=== PATIENT | female | born 1985 | race African-American/Black ===

== ENCOUNTER 2024-07-04 11:42 | Emergency (ER) | payer OTHER, SELFPAY ==
--- NOTE | ~2024-07-04 | US_ITS ---
EXAMINATION: US PELVIS TRANSABDOMINAL AND TRANSVAGINAL HISTORY: pelvic pain. ovarian torsion? COMPARISON: There are no prior studies for comparison. TECHNIQUE: Transabdominal and endovaginal real-time 2D steven-scale ultrasound was performed. Color and pulsed Doppler evaluation of the bilateral ovarian arteries and veins was performed. FINDINGS: Uterus: The uterus is normal in size, measuring 8.1 x 3.4 x 4.3 cm. Myometrium has a normal echotexture. There are 2 right sided fibroid measuring 6 x 6 x 6 mm and 7 x 7 x 8 mm. Endometrium: The endometrial stripe measures 3 mm in thickness. Right ovary: The right ovary measures 1.8 x 2.5 x 1.7 cm. The right ovary is normal in size and echotexture. Left ovary: The left ovary measures 2.2 x 1.9 x 1.8 cm. The left ovary is normal in size and echotexture. There is a cyst in the left adnexa adjacent to the ovary measuring 1.4 x 1.2 x 1.2 cm. Normal color and pulsed Doppler waveforms are noted in the bilateral ovarian arteries and veins. Pelvic fluid: none. US/US pelvic and transvaginal IMPRESSION: 1. Normal color and pulse Doppler vascular flow is noted in the bilateral ovarian arteries and veins. 2. Uterine fibroids as described. 3. 1.4 x 1.2 x 1.2 cm left adnexal cyst, which may represent a paraovarian cyst. Electronically signed by: Adam Zafar MD 07/04/2024 03:26 PM EDT
--- NOTE | ~2024-07-04 | US_ITS ---
EXAMINATION: US PELVIS TRANSABDOMINAL AND TRANSVAGINAL HISTORY: pelvic pain. ovarian torsion? COMPARISON: There are no prior studies for comparison. TECHNIQUE: Transabdominal and endovaginal real-time 2D steven-scale ultrasound was performed. Color and pulsed Doppler evaluation of the bilateral ovarian arteries and veins was performed. FINDINGS: Uterus: The uterus is normal in size, measuring 8.1 x 3.4 x 4.3 cm. Myometrium has a normal echotexture. There are 2 right sided fibroid measuring 6 x 6 x 6 mm and 7 x 7 x 8 mm. Endometrium: The endometrial stripe measures 3 mm in thickness. Right ovary: The right ovary measures 1.8 x 2.5 x 1.7 cm. The right ovary is normal in size and echotexture. Left ovary: The left ovary measures 2.2 x 1.9 x 1.8 cm. The left ovary is normal in size and echotexture. There is a cyst in the left adnexa adjacent to the ovary measuring 1.4 x 1.2 x 1.2 cm. Normal color and pulsed Doppler waveforms are noted in the bilateral ovarian arteries and veins. Pelvic fluid: none. US/US pelvic ovarian doppler IMPRESSION: 1. Normal color and pulse Doppler vascular flow is noted in the bilateral ovarian arteries and veins. 2. Uterine fibroids as described. 3. 1.4 x 1.2 x 1.2 cm left adnexal cyst, which may represent a paraovarian cyst. Electronically signed by: Adam Zafar MD 07/04/2024 03:26 PM EDT
[2024-07-04 12:01] VITALS: BP 113/57; PULSE 79; RESP 20; TEMP 37; O2SAT 100; BMI 33.4
--- NOTE | 2024-07-04 12:04 | ED.GENADULT ---
HPI - General Adult General Chief complaint: General Medical Stated complaint: Ovarian cyst? Time Seen by Provider: 07/04/24 14:07 History of Present Illness ED Provider: Samuel Espinoza MD HPI narrative: 38-year-old female heavy pain and pressure left lower quadrant. History of ovarian cysts. No hematuria. Patient reports a left lower quadrant pain and suprapubic pain without dysuria. Just finished her menses. She is not . No flank pain no history of kidney stones currently no urinary symptoms Surgical history 2019 no complications described Related Data Previous Rx's ?Medication ?Instructions ?Recorded amoxicillin 875 mg-potassium 1 tab PO BID 7 days #14 tabs 07/04/24 clavulanate 125 mg tablet Allergies Allergy/AdvReac Type Severity Reaction Status Date / Time No Known Allergies Allergy Verified 07/04/24 12:01 [facility] Social History Social History Advance Directives: No Advance Directives Information Provided: No Physical Exam ED Vital Signs: Vital Signs - 24 hr 07/04/24 12:01 07/04/24 14:51 07/04/24 16:08 Temperature 98.6 F 98.2 F 97.7 F Pulse Rate 79 85 74 Respiratory Rate 20 18 18 Blood Pressure 113/57 L 110/48 L 111/50 L Pulse Oximetry 100 100 100 Oxygen Delivery Method Room Air Room Air Room Air BMI result Body Mass Index 33.4 Const Other: EXAM: Gen: Alert, awake, well appearing, well hydrated. Head: Atraumatic Eyes: Anicteric, Normal conjunctiva. ENT: Moist mucosa, no pallor. ? Neck: Supple. Respiratory: Breathing comfortably, No distress.Clear to auscultation bilaterally, symmetric chest expansion, No wheeze, rales, ronchi. Cardiovascular: Regular rate and rhythm. No murmurs or rub. Well perfused periphery, warm extremities. No edema. ? Abdominal: Soft, no objective distension. No palpable masses or obvious organomegaly. Moderate left lower quadrant and suprapubic tenderness, no guarding, no rebound tenderness or other peritoneal findings. : No flank tenderness. Neuro: Alert. Gross movement of all extremities intact. ? Vital signs: See flowsheet Course Course Course Narrative: RME: 38-year-old female presents to ED for left pelvic ovarian cyst. Patient states history of ovarian cyst and feels pressure and fullness over his turning and left lower quadrant. Patient denies any vaginal bleeding or vaginal discharge. Patient denies any diarrhea or blood in stool. Positive for left suprapubic pelvic tenderness on palpation. Labs UA ordered Medications Administered Discontinued Medications Generic Name Dose Route Start Last Admin Trade Name Cathi PRN Reason Stop Dose Admin Acetaminophen 975 mg 07/04/24 14:57 07/04/24 16:38 Acetaminophen 325 Mg Tablet PO 07/04/24 14:58 975 mg ONCE ONE Administration Ketorolac Tromethamine 15 mg 07/04/24 14:57 07/04/24 16:37 Ketorolac Tromethamine 15 Mg/Ml Vial IVPUSH 07/04/24 14:58 15 mg ONCE ONE Administration Medical Decision Making Medical Decision Making MDM Narrative: Hx of ovarian cysts. No prior PID. Non . Tender suprapubic and left lower quadrant. Afebrile vital signs stable. Differential considered ovarian torsion, ovarian cyst, ovarian cyst rupture, TOA, UTI, diverticulitis After ultrasound imaging it is possible that the paraovarian cyst is causing her pain though there is no evidence of torsion and it is quite small. At this time given her well appearance lack of fever or hemodynamic instability no guarding I think it is reasonable to avoid CT shared decision-making discussion about this and we felt it was reasonable to provide wait and see antibiotics for possible early diverticulitis have her see her marine engine driver as soon as possible she is agreeable to this IMPRESSION: 1. Normal color and pulse Doppler vascular flow is noted in the bilateral ovarian arteries and veins. 2. Uterine fibroids as described. 3. 1.4 x 1.2 x 1.2 cm left adnexal cyst, which may represent a paraovarian cyst. Lab Data 07/04/24 12:40 07/04/24 12:40 Labs: Lab Results 07/04/24 07/04/24 Range/Units 12:40 15:57 WBC 6.1 (4.8-10.8) X10*3/uL RBC 4.03 L (4.20-5.50) X10*6/uL Hgb 11.8 L (12.0-16.0) g/dl Hct 36.0 L (37.0-47.0) % MCV 89.3 (80.0-98.0) fL MCH 29.3 (27.0-33.0) pg MCHC 32.8 (31.0-35.0) g/dl RDW 13.5 (11.0-16.0) % Plt Count 307 (160-400) X10*3/uL MPV 9.7 (9.4-12.3) fL Immature Gran % (Auto) 0.2 (0.0-0.4) % Neut % (Auto) 65.5 (45-73) % Lymph % (Auto) 26.8 (20-40) % [place] % (Auto) 5.3 (2-11) % Eos % (Auto) 1.5 (0-4) % Baso % (Auto) 0.7 (0-2) % Lymph # (Auto) 1.6 (1.2-4.9) X10*3/uL [place] # (Auto) 0.3 (0.1-1.2) X10*3/uL Eos # (Auto) 0.1 (0.0-0.4) X10*3/uL Baso # (Auto) 0.0 (0.0-0.2) X10*3/uL Abs Immat Gran (auto) 0.01 (0.00-0.03) X10*3/uL Absolute Neuts (auto) 4.0 (2.0-8.3) x10*3/uL Absolute Nucleated RBC 0.000 (0.0-0.012) X10*3/uL Nucleated RBC % (auto) 0.0 (0.0-0.2) /100WBC Sodium 140 (135-145) mmol/L Potassium 4.0 (3.3-5.1) mmol/L Chloride 106 (96-108) mmol/L Carbon Dioxide 27 (22-29) mmol/L Anion Gap 11 L (12-20) BUN 5 L (9-16) mg/dL Creatinine 0.80 (0.5-1.4) mg/dL Estim Creat Clear Calc 97.0 Estimated GFR > 60 Random Glucose 85 (60-115) mg/dL Calcium 9.2 (8.4-10.2) mg/dL Total Bilirubin 0.3 (0.0-1.0) mg/dL AST 16 (5-31) U/L ALT 9 (0-31) U/L Alkaline Phosphatase 83 (39-117) U/L Total Protein 7.5 (6.5-8.0) g/dL Albumin 4.3 (3.5-5.0) g/dL Beta HCG, Quant < 2 mIU/mL Urine Color Yellow Urine Appearance Clear Urine pH 7.5 (5.0-9.0) Ur Specific [place] <= 1.005 (1.005-1.025) Urine Protein Negative (Neg-Trace) mg/dL Urine Glucose (UA) Negative (Negative) mg/dL Urine Ketones Negative (Negative) mg/dL Urine Blood Negative (Negative) Urine Nitrite Negative (Negative) Ur Leukocyte Esterase Negative (Negative) Urine Test NEGATIVE (NEGATIVE) Discharge Plan Discharge Clinical Impression: Para-ovarian cyst, Abdominal pain Patient Disposition: Home, Self-Care Instructions: Ovarian Cyst (ED), Abdominal Pain (ED) Additional Instructions: DISCHARGE DIAGNOSES: Paraovarian cyst small on the left side Abdominal pain unclear cause HISTORY OF PRESENTATION: Abdominal pain EMERGENCY DEPARTMENT COURSE,TESTS, TREATMENTS: While in the ED today you had an ultrasound which showed the findings copied below which may or may not be related to abdominal pain we tested your blood work which was reassuring. Your test was negative in your urinalysis did not suggest urinary tract infection DISCHARGE MEDICATIONS: ?[We have made no changes to your regular medication regimen] if prescribed antibiotic which as we discussed should not be taken at less your pain worsens in the left lower side of the abdomen or you develop diarrhea over the next few days FOLLOW-UP: ?Call your primary or general physician soon as possible to discuss your symptoms, your ED visit and to discuss follow up plans [Call your primary doctor for follow up INSTRUCTIONS ?& RETURN PRECAUTIONS: If any symptoms change first call your primary physician, if it is after-hours your primary doctors office should have a provider bpm solution architect you can speak with. If the symptoms are severe or very concerning to you then call 911 or return to the ED. If you develop severe intractable pain high fevers severe diarrhea or bloody diarrhea return back to the emergency depart. Also call your marine engine driver for follow up IMPRESSION: 1. Normal color and pulse Doppler vascular flow is noted in the bilateral ovarian arteries and veins. 2. Uterine fibroids as described. 3. 1.4 x 1.2 x 1.2 cm left adnexal cyst, which may represent a paraovarian cyst. Samuel Espinoza MD Emergency Physician [facility] Prescriptions: New amoxicillin-pot clavulanate 875-125 mg tablet 1 tab PO BID 7 Days Qty: 14 0RF Interventions: ED Discharge Assessment Last Done: 07/04/24 16:57 Discharge Date/Time: 07/04/24 16:57 Print Language: [place]
[2024-07-04 12:46] LABS: MANUAL DIFF FLAG NO
[2024-07-04 12:49] LABS: Basophils Percent Auto 0.7 % (0-2); Eosinophils Absolute Auto 0.1 X10*3/uL (0.0-0.4); Eosinophils Percent Auto 1.5 % (0-4); Hemoglobin 11.8 g/dl (12.0-16.0); Imm Gran Abs Auto 0.01 X10*3/uL (0.00-0.03); Imm Gran Pct Auto 0.2 % (0.0-0.4); Lymphocytes Absolute Auto 1.6 X10*3/uL (1.2-4.9); Lymphocytes Percent Auto 26.8 % (20-40); Mean Corpuscular HGB Conc 32.8 g/dl (31.0-35.0); Mean Corpuscular Hemoglobin 29.3 pg (27.0-33.0); Mean Corpuscular Volume 89.3 fL (80.0-98.0); Mean Platelet Volume 9.7 fL (9.4-12.3); Monocytes Absolute Auto 0.3 X10*3/uL (0.1-1.2); Monocytes Percent Auto 5.3 % (2-11); Neutrophils Percent Auto 65.5 % (45-73); Platelet Count 307 X10*3/uL (160-400); Red Blood Count 4.03 X10*6/uL (4.20-5.50); Red Cell Distribution Width 13.5 % (11.0-16.0); White Blood Count 6.1 X10*3/uL (4.8-10.8)
[2024-07-04 13:14] LABS: Alanine Aminotransferase 9 U/L (0-31); Albumin Level 4.3 g/dL (3.5-5.0); Anion Gap 11 (12-20); Aspartate Amino Transferase 16 U/L (5-31); Bilirubin Total 0.3 mg/dL (0.0-1.0); Blood Urea Nitrogen 5 mg/dL (9-16); Calcium 9.2 mg/dL (8.4-10.2); Carbon Dioxide 27 mmol/L (22-29); Chloride 106 mmol/L (96-108); Estimated Glomerular Filt Rate > 60; Glucose Random 85 mg/dL (60-115); Sodium 140 mmol/L (135-145); Total Protein 7.5 g/dL (6.5-8.0)
[2024-07-04 13:24] LABS: HCG Quantitative < 2 mIU/mL
[2024-07-04 14:51] VITALS: BP 110/48; PULSE 85; RESP 18; TEMP 36.8; O2SAT 100
--- OUTSIDE RECORDS SUMMARY | 2024-07-04 15:40 | XMS_ITS ---
Author Organization [facility] Address [address] [place] [address] Care Team Providers Care Entry Level Assistant Manager Name Role Phone JORGE ALBERTO PRIDE Unavailable [phone] MEDICATIONS Medication SIG (Take, Route, Frequency, Duration) Notes Start Date End Date Status Vitamin K2-Vitamin D3 Active buPROPion HCl 100 MG 1 tablet Orally Twice a day Active Tirzepatide 2.5 MG/0.5ML as directed Subcutaneous Active Zepbound 2.5 MG/0.5ML 0.5 mL Subcutaneou s weekly for 30 days 12/15/2023 Active Encounters Encounter Location Date Provider Diagnosis [facility] [address] [place] [address] 03/28/2024 JORGE ALBERTO PRIDE PLAN OF TREATMENT Next Appt Details Provider Name:JORGE ALBERTO PRIDE, 08/11/2024 09:45:00 AM, [address], [place], [address], Progress Notes * Ratna GALINDOB:[birth year] (38 yo F)Acc No.[id number]:03/28/2024 Patient:??Jose GALINDO Provider:??JORGE ALBERTO NGUYEN PA-C :1985?Age:38 Y?Sex:Fe male Date:03/28/2024 [id number] Subjective: * Chief Complaints: * ? * Medical History:?? * Medications:??Taking Tirzepa tide 2.5 MG/0.5ML Solution Auto-injector as directed Subcutaneous , Taking Vitamin K2-Vitamin D3 , Taking buPROPion HCl 100 MG Tablet 1 tablet Orally Twice a day , Taking Zepbound 2.5 MG/0.5ML Solution Auto-injector 0.5 mL Subcutaneous weekly Objective: Assessment: Plan: * Treatment: * Images: Billing Information: * Visit Code:?? * Procedure Codes:?? * Sign off status: Pending * Provider:??JORGE ALBERTO NGUYEN PA-C Date:??03/02
--- OUTSIDE RECORDS SUMMARY | 2024-07-04 15:40 | XMS_ITS ---
Author Organization [facility] Address [address] [place] [id number] Care Team Providers Care Digital Imaging Specialist Name Role Phone JORGE ALBERTO PRIDE Unavailable [phone] ALLERGIES No Known Allergies REASON FOR VISIT Patient presents for weight management follow up. Previous weight was 196lbs, current weight is standing at 191lbs. The patient is interested in increasing the Zepbound 2.5mg to 5mg. No additional questions or concerns needed to be addressed MEDICATIONS Medication SIG (Take, Route, Frequency, Duration) Notes Start Date End Date Status buPROPion HCl ER (SR) 100 MG 1 tablet in the morning Orally Once a day for 90 days Active lamoTRIgine 25 MG Oral for 30 Days Active Vitamin K2-Vitamin D3 Active Zepbound 5 MG/0.5ML 5 mg Subcutaneous we ekly for 30 days 12/15/2023 Active SOCIAL HISTORY Tobacco Use: Social History Observation Description Date Details (start date - stop date) Never Smoker NA - NA Sex Assigned At : Social History Observation Description Sex Assigned At Unknown Tobacco Use/Smoking Question Answer Notes Are you a nonsmoker Section Notes: alcohol: wine 1x/week tob: denies marijuana: once every few months PROBLEMS Problem Type ICD Code Onset Dates Problem Status W/U Status Risk SNOMED Code Notes Problem Migraine headache (G43.909) Active confirmed Migraine variant with headache (disorder) (659381351) Problem BMI 36.0-36.9,adul t (Z68.36) Active confirmed [id number] VITAL SIGNS Blood pressure systolic 118 mm Hg 05/05/19 25 Blood pressure diastolic 82 mm Hg 025 Heart Rate 101 /min 05/04/2024 Height 61 in 05/04/2024 Weight 191.5 lbs 05/04/2024 BMI 36.18 kg/m2 05/04/2024 Oximetry 99 % 05/04/2024 Encounters Encounter Location Date Provider Diagnosis [facility] [address] [place] [address] 05/04/2024 JORGE ALBERTO PRIDE Obesity (BMI 30-39.9) E66.9 ; BMI 36.0-36.9,adult Z68.36 and Anxiety F41.9 ASSESSMENTS Encounter Date Diagnosis Assessment Notes Treatment Notes Treatment Clinical Notes Section Notes 05/04/2024 Obesity (BMI 30-39.9) (ICD-10 - E66.9) Shandra Is a 38-year-old female who presents officer weight management f/u. Weight loss plan will be managed as stated below. 03/18/22: weight 203, BMI 38.43- educated on diet/exercise, obtain labs 04/23/22: weight 208, BMI 39.3- educated extensively on lifestyle modifications, diet, exercise. Labs reviewed, which were overall without concern. Patient is interested in weight loss medication, will consider phentermine as she does qualify. EKG obtained today and was within normal limits. No concern for at this time. Patient educated excessively on side effects of phentermine. Will start phentermine 15 mg, and reassess and Four weeks, sooner as needed. Patient is a goal weight of around 175 pounds. 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 Patient was educated excessively on diet/exercise and provided handouts for a check sheet to focus on lifestyle modifications as well as high-protein, low carbohydrate, healthy fats. Patient will walk approximately 2 to 3 miles 4 to 5 times per week on her treadmill, and she will incorporate body weight strength training. Patient does have well above average muscle mass on her body, and we would like to maintain that. Patient will increase her water intake. She may consider intermittent fasting in the future. 05/28/22: weight 202.7, BMI 38.3- patient congratulated on efforts. She continues to lose weight with success. Taking phentermine 15 mg with compliance, without any side effects. Encouraged to continue with lifestyle modifications including walking regularly as well as portion control. MICC provided. Will increase phentermine to 30 mg. Patient will take 2, 15 mg tablets daily. Will follow up in one month, sooner as needed. 07/10/22: weight 198, BMI 37.4. Patient was increased to 30 mg phentermine qd last visit and has had associated side effects since increase including, sleep disturbances, constipation, lightheadedness, and lack of energy. These symptoms have led to her falling behind on previously discussed lifestyle changes from 05/28/22. She stated her most concerning symptoms are lack of sleep and increase in stress. She appears in NAD, and physical exam was unremarkable. She was instructed to D/C the dose of 30 mg phentermine and decrease back down to 15 mg phentermine qd. Lifestyle changes from previous visit were discussed, and goal for next visit is to be at those goals. Patient was educated on return precautions if she had palpitations or chest pains, or if her symptoms worsen. If Patient expensing plateau, consider Wegovy as patient will have three consecutive months of weight loss by next visit. 05/18/2023: Weight 209.2, BMI 39.52. Patient welcomed back to the practice. Has not been seen since July 2022. Is ready to get back on track. Was taking phentermine with compliance, no side effects but stopped following up with practice because she was not mentally ready. States that she now feels very motivated, anxiety under control with Celexa, and is ready to get back on the medication in conjunction with lifestyle. Discussed extensively lifestyle modification including high-protein foods, low carbohydrate snacks, healthy fats, sleep hygiene, stress reduction. Discussed medication options. Is aware of health insurance coverage/national shortages of medications. Will start semaglutide 0.25 mg with a goal to taper up to a dose is available with [facility]. Patient in the meantime will call [facility] to see if they cover Wegovy. Educated on proper use, side effects. 06/23/2023: Weight 206.4, BMI 38.99. Patient congratulated on effort, losing slow, steady weight. Body composition reviewed, patient did gain some fat, decreased the muscle. Educated on the importance of body composition, resistance training. Increase to semaglutide 0.5, has been having some nausea, but tolerable with lifestyle. Implementing more walking now that the weather is nicer. Interested in a submitting for Wegovy 1 mg. She is aware prior authorization process, national shortage. 12/15/2023: Weight 203, BMI 38.41. Patient reestablishing, last seen in May for which she was taking Wegovy 1 mg but she stopped taking medication because of severe acid reflux, and abdominal pain. She is interested in switching over to Zepbound. Did discuss proper use, side effects and long-term risks. She is hoping that she has less side effects on this medication. Will start with tirzepatide 2.5 mg in office in the meantime compounded.Follow-up in 4 to 6 weeks. 01/19/2024: Weight 196, BMI 37.07. Patient congratulated on effort, continuing to lose slow, steady weight. Continue tirzepatide 2.5 mg, doing more consistent Pilates and walking. Trying to submit Zepbound through [employer], [place] this patient has tried semaglutide, did not tolerate well. 05/04/2024: Weight 191, BMI 36. Patient congratulated on effort. Losing fat mass, 9 pounds since November, and increased to half a pound of muscle. She is very pleased with her progress overall. Increase Zepbound to 5 mg, follow-up in 6 weeks. Patient is feeling much better on Zepbound than she did Wegovy. # Onychomycosis: On terbinafine, controlled # Anxiety: Taking Wellbutrin 100 mg and Lamictal 25 mg, feeling well.Some challenges over the winter with anxiety/depression control but is starting to feel better. Following with psychiatry. Time spent with patient 30 minutes or greater than 50% of patient occasion and care coronation Follow-up in 4-6 weeks, sooner as needed. All quetsions answered to patients satisfaction. Patient verbalized understanding of diagnosis and treatments explained. To call sooner prior to next visit it any questions/concerns arise. Case discussed with collaborating physician Aliza Garrett who reviewed the assessment and plan. Chart, medications, labs, vital signs reviewed. Dictation was accomplished with the use of [employer] voice recognition software, prone to medical misidentifications and grammatical errors. This is unintentional and the practitioner does try to identify and correct these, but some could still be present. Please do not hesitate to contact practitioner for clarification. 05/04/2024 BMI 36.0-36.9,margarette lt (ICD-10 - Z68.36) Shandra Is a 38-year-old female who presents officer weight management f/u. Weight loss plan will be managed as stated below. 03/18/22: weight 203, BMI 38.43- educated on diet/exercise, obtain labs 04/23/22: weight 208, BMI 39.3- educated extensively on lifestyle modifications, diet, exercise. Labs reviewed, which were overall without concern. Patient is interested in weight loss medication, will consider phentermine as she does qualify. EKG obtained today and was within normal limits. No concern for at this time. Patient educated excessively on side effects of phentermine. Will start phentermine 15 mg, and reassess and Four weeks, sooner as needed. Patient is a goal weight of around 175 pounds. 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 Patient was educated excessively on diet/exercise and provided handouts for a check sheet to focus on lifestyle modifications as well as high-protein, low carbohydrate, healthy fats. Patient will walk approximately 2 to 3 miles 4 to 5 times per week on her treadmill, and she will incorporate body weight strength training. Patient does have well above average muscle mass on her body, and we would like to maintain that. Patient will increase her water intake. She may consider intermittent fasting in the future. 05/28/22: weight 202.7, BMI 38.3- patient congratulated on efforts. She continues to lose weight with success. Taking phentermine 15 mg with compliance, without any side effects. Encouraged to continue with lifestyle modifications including walking regularly as well as portion control. MICC provided. Will increase phentermine to 30 mg. Patient will take 2, 15 mg tablets daily. Will follow up in one month, sooner as needed. 07/10/22: weight 198, BMI 37.4. Patient was increased to 30 mg phentermine qd last visit and has had associated side effects since increase including, sleep disturbances, constipation, lightheadedness, and lack of energy. These symptoms have led to her falling behind on previously discussed lifestyle changes from 05/28/22. She stated her most concerning symptoms are lack of sleep and increase in stress. She appears in NAD, and physical exam was unremarkable. She was instructed to D/C the dose of 30 mg phentermine and decrease back down to 15 mg phentermine qd. Lifestyle changes from previous visit were discussed, and goal for next visit is to be at those goals. Patient was educated on return precautions if she had palpitations or chest pains, or if her symptoms worsen. If Patient expensing plateau, consider Wegovy as patient will have three consecutive months of weight loss by next visit. 05/18/2023: Weight 209.2, BMI 39.52. Patient welcomed back to the practice. Has not been seen since July 2022. Is ready to get back on track. Was taking phentermine with compliance, no side effects but stopped following up with practice because she was not mentally ready. States that she now feels very motivated, anxiety under control with Celexa, and is ready to get back on the medication in conjunction with lifestyle. Discussed extensively lifestyle modification including high-protein foods, low carbohydrate snacks, healthy fats, sleep hygiene, stress reduction. Discussed medication options. Is aware of health insurance coverage/national shortages of medications. Will start semaglutide 0.25 mg with a goal to taper up to a dose is available with [facility]. Patient in the meantime will call [facility] to see if they cover Wegovy. Educated on proper use, side effects. 06/23/2023: Weight 206.4, BMI 38.99. Patient congratulated on effort, losing slow, steady weight. Body composition reviewed, patient did gain some fat, decreased the muscle. Educated on the importance of body composition, resistance training. Increase to semaglutide 0.5, has been having some nausea, but tolerable with lifestyle. Implementing more walking now that the weather is nicer. Interested in a submitting for Wegovy 1 mg. She is aware prior authorization process, national shortage. 12/15/2023: Weight 203, BMI 38.41. Patient reestablishing, last seen in May for which she was taking Wegovy 1 mg but she stopped taking medication because of severe acid reflux, and abdominal pain. She is interested in switching over to Zepbound. Did discuss proper use, side effects and long-term risks. She is hoping that she has less side effects on this medication. Will start with tirzepatide 2.5 mg in office in the meantime compounded.Follow-up in 4 to 6 weeks. 01/19/2024: Weight 196, BMI 37.07. Patient congratulated on effort, continuing to lose slow, steady weight. Continue tirzepatide 2.5 mg, doing more consistent Pilates and walking. Trying to submit Zepbound through [facility], [place] this patient has tried semaglutide, did not tolerate well. 05/04/2024: Weight 191, BMI 36. Patient congratulated on effort. Losing fat mass, 9 pounds since November, and increased to half a pound of muscle. She is very pleased with her progress overall. Increase Zepbound to 5 mg, follow-up in 6 weeks. Patient is feeling much better on Zepbound than she did Wegovy. # Onychomycosis: On terbinafine, controlled # Anxiety: Taking Wellbutrin 100 mg and Lamictal 25 mg, feeling well.Some challenges over the winter with anxiety/depression control but is starting to feel better. Following with psychiatry. Time spent with patient 30 minutes or greater than 50% of patient occasion and care coronation Follow-up in 4-6 weeks, sooner as needed. All quetsions answered to patients satisfaction. Patient verbalized understanding of diagnosis and treatments explained. To call sooner prior to next visit it any questions/concerns arise. Case discussed with collaborating physician Aliza Garrett who reviewed the assessment and plan. Chart, medications, labs, vital signs reviewed. Dictation was accomplished with the use of [employer] voice recognition software, prone to medical misidentifications and grammatical errors. This is unintentional and the practitioner does try to identify and correct these, but some could still be present. Please do not hesitate to contact practitioner for clarification. 05/04/2024 Anxiety (ICD-10 - F41.9) Shandra Is a 38-year-old female who presents officer weight management f/u. Weight loss plan will be managed as stated below. 03/18/22: weight 203, BMI 38.43- educated on diet/exercise, obtain labs 04/23/22: weight 208, BMI 39.3- educated extensively on lifestyle modifications, diet, exercise. Labs reviewed, which were overall without concern. Patient is interested in weight loss medication, will consider phentermine as she does qualify. EKG obtained today and was within normal limits. No concern for at this time. Patient educated excessively on side effects of phentermine. Will start phentermine 15 mg, and reassess and Four weeks, sooner as needed. Patient is a goal weight of around 175 pounds. 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 Patient was educated excessively on diet/exercise and provided handouts for a check sheet to focus on lifestyle modifications as well as high-protein, low carbohydrate, healthy fats. Patient will walk approximately 2 to 3 miles 4 to 5 times per week on her treadmill, and she will incorporate body weight strength training. Patient does have well above average muscle mass on her body, and we would like to maintain that. Patient will increase her water intake. She may consider intermittent fasting in the future. 05/28/22: weight 202.7, BMI 38.3- patient congratulated on efforts. She continues to lose weight with success. Taking phentermine 15 mg with compliance, without any side effects. Encouraged to continue with lifestyle modifications including walking regularly as well as portion control. MICC provided. Will increase phentermine to 30 mg. Patient will take 2, 15 mg tablets daily. Will follow up in one month, sooner as needed. 07/10/22: weight 198, BMI 37.4. Patient was increased to 30 mg phentermine qd last visit and has had associated side effects since increase including, sleep disturbances, constipation, lightheadedness, and lack of energy. These symptoms have led to her falling behind on previously discussed lifestyle changes from 05/28/22. She stated her most concerning symptoms are lack of sleep and increase in stress. She appears in NAD, and physical exam was unremarkable. She was instructed to D/C the dose of 30 mg phentermine and decrease back down to 15 mg phentermine qd. Lifestyle changes from previous visit were discussed, and goal for next visit is to be at those goals. Patient was educated on return precautions if she had palpitations or chest pains, or if her symptoms worsen. If Patient expensing plateau, consider Wegovy as patient will have three consecutive months of weight loss by next visit. 05/18/2023: Weight 209.2, BMI 39.52. Patient welcomed back to the practice. Has not been seen since July 2022. Is ready to get back on track. Was taking phentermine with compliance, no side effects but stopped following up with practice because she was not mentally ready. States that she now feels very motivated, anxiety under control with Celexa, and is ready to get back on the medication in conjunction with lifestyle. Discussed extensively lifestyle modification including high-protein foods, low carbohydrate snacks, healthy fats, sleep hygiene, stress reduction. Discussed medication options. Is aware of health insurance coverage/national shortages of medications. Will start semaglutide 0.25 mg with a goal to taper up to a dose is available with [facility]. Patient in the meantime will call [facility] to see if they cover Wegovy. Educated on proper use, side effects. 06/23/2023: Weight 206.4, BMI 38.99. Patient congratulated on effort, losing slow, steady weight. Body composition reviewed, patient did gain some fat, decreased the muscle. Educated on the importance of body composition, resistance training. Increase to semaglutide 0.5, has been having some nausea, but tolerable with lifestyle. Implementing more walking now that the weather is nicer. Interested in a submitting for Wegovy 1 mg. She is aware prior authorization process, national shortage. 12/15/2023: Weight 203, BMI 38.41. Patient reestablishing, last seen in May for which she was taking Wegovy 1 mg but she stopped taking medication because of severe acid reflux, and abdominal pain. She is interested in switching over to Zepbound. Did discuss proper use, side effects and long-term risks. She is hoping that she has less side effects on this medication. Will start with tirzepatide 2.5 mg in office in the meantime compounded.Follow-up in 4 to 6 weeks. 01/19/2024: Weight 196, BMI 37.07. Patient congratulated on effort, continuing to lose slow, steady weight. Continue tirzepatide 2.5 mg, doing more consistent Pilates and walking. Trying to submit Zepbound through [facility], [place] this patient has tried semaglutide, did not tolerate well. 05/04/2024: Weight 191, BMI 36. Patient congratulated on effort. Losing fat mass, 9 pounds since November, and increased to half a pound of muscle. She is very pleased with her progress overall. Increase Zepbound to 5 mg, follow-up in 6 weeks. Patient is feeling much better on Zepbound than she did Wegovy. # Onychomycosis: On terbinafine, controlled # Anxiety: Taking Wellbutrin 100 mg and Lamictal 25 mg, feeling well.Some challenges over the winter with anxiety/depression control but is starting to feel better. Following with psychiatry. Time spent with patient 30 minutes or greater than 50% of patient occasion and care coronation Follow-up in 4-6 weeks, sooner as needed. All quetsions answered to patients satisfaction. Patient verbalized understanding of diagnosis and treatments explained. To call sooner prior to next visit it any questions/concerns arise. Case discussed with collaborating physician Aliza Garrett who reviewed the assessment and plan. Chart, medications, labs, vital signs reviewed. Dictation was accomplished with the use of [employer] voice recognition software, prone to medical misidentifications and grammatical errors. This is unintentional and the practitioner does try to identify and correct these, but some could still be present. Please do not hesitate to contact practitioner for clarification. PLAN OF TREATMENT Medication Medication Name Sig Start Date Stop Date Notes Zepbound 5 MG/0.5ML 5 mg Subcutaneous weekly for 30 days 1 Next Appt Details Provider Name:JORGE ALBERTO PRIDE, 08/11/2024 09:45:00 AM, [address] [facility], [place], [phone], Progress Notes * Jose GALINDOaDOB:[birth year] (38 yo F)Acc No.[id number]:05/04/2024 Patient:??Jose GALINDO Provider:??JORGE ALBERTO NGUYEN PA-C :1985?Age:38 Y?Sex:Fe male Date:05/04/2024 Address:[address] [place], [id number] Subjective: * Chief Complaints: * ?1. Patient presents fo r weight management follow up. Previous weight was 196lbs, current weight is standing at 191lbs. The patient is interested in increasing the Zepbound 2.5mg to 5mg. No additional questions or concerns needed to be addressed. * HPI: ?Constitutional:? Shandra is a pleasant 38-year-old female who presents the office for a weight management follow-up. Patient's weight last visit was 196 pounds, today 191 pounds. Taking Zepbound 2.5 mg, interested in increasing to 5 mg. Feeling much better than she did on the Wegovy. Less constipation. Feels like she is at a pleatau and more hungry and wants to increase dose. Off for 1 week and due for injection. Grandmother is sick, so she is taking more time for her. Has seasonal effective disorder. Taking bupropion and Lamictal and feeling better. Exercise is limited right now due to depression and anxiety but getting back on track. Goals 3 times weekly outside or at the [facility]. Wants try piliates. * ROS:?Constitutional: Patient denies any excessive fatigue with exercise, no weight loss, no fever and no night sweats ???Eyes: No eye discharge, no itching, no redness. ???Ear nose throat: No sore throat, postnasal drip, runny nose, Sneezing ???Cardiovascular: No chest pain, no shortness of breath, no dyspnea on exertion, no PND, no orthopnea, no irregular pulse ???Respiratory: No chronic cough, no hemoptysis, no sputum, no wheezing ???GI, no diarrhea, no constipation no blood in the stools, no pain associated with eating, no indigestion ???Genitourinary: No painful urination no hesitancy no blood in the urine ???Musculoskeletal, no limitations to walking and running, no joint deformity, no joint stiffness, no chronic back pain, no noise with joint movement ???Integumentary, no new skin rash. No new changes in skin moles ???Neurological: No history of seizures, memory loss, No language dysfunction, No inability to concentrate, no localized weakness, no sensation loss, no confusion ???Psychiatric: No depression, no suicidal thoughts, no anxiety ???Endocrine: No polyuria no polyphagia or polydipsia, no heat intolerance no cold intolerance ???Hematological: No easy bruising or Lymph node swelling. * Medical History:??Weight gai n, Migraine headache, Anxiety. * Surgical History:?? 09/09/2019. * Hospitalization/Major Diagno stic Procedure:??Denies Past Hospitalization. * Family History:??Father: dec eased.??Mother: alive 59 yrs.??1 brother(s) - healthy. .?? lung cancer: maternl grandfather twins!. * Social History:?Tobacco Use:??Tobacco Use/Smoking??Are you a??nonsmoker.?alcohol: wine 1x/week ???tob: denies ???marijuana: once every few months. * Medications:??Taking Vitamin K2-Vitamin D3 , Taking Zepbound 2.5 MG/0.5ML Solution Auto-injector 0.5 mL Subcutaneous weekly , Taking buPROPion HCl ER (SR) 100 MG Tablet Extended Release 12 Hour 1 tablet in the morning Orally Once a day , Taking lamoTRIgine 25 MG Tablet Oral , Discontinued Tirzepatide 2.5 MG/0.5ML Solution Auto-injector as directed Subcutaneous , Medication List reviewed and reconciled with the patient * Allergies:??N.K.D.A. Objective: * Vitals:??HR:101/min, BP:118/ 82mm Hg, Wt:191.5lbs, BMI:36.18Index, Ht: 61 in, Oxygen sat %:99%. * Physical Examination:?General: Age appropriate female, well appearing, no acute distress, speaking in full sentences without respiratory compromise. Well groomed, well developed. ?Skin: Warm, dry and intact. ?HEENT: Normocephalic/atraumatic. EOMs intact and pupils are PEARRLA. Normal dentition, no phanrgyeal erythema or tonsillar exudate, tongue and uvula are midline. ?Neck/Thyroid: Supple. Full ROM. No lymphadenopathy. ?Lung: Clear to auscultation bilaterally, no wheezes, rales or rhonchi. No barrel chest. Equal chest rise and fall bilaterally. ?Cardiac: S1 and S2 appreciated. No murmurs/rubs or gallops. ?Neuro: CN II-XI grossly intact. Steady gait with ambulation observed. ?Psych: Stable mood and affect. Assessment: * Assessment: 1.??Obesity (BMI 30-39.9) - E66.9 (Primary)??2.??BMI 36.0-36.9,adult - Z68.36??3.??Anxiety - F41.9?? Shandra Is a 38-year-old fe male who presents officer weight management f/u. Weight loss plan will be managed as stated below. 03/18/22: weight 203, BMI 38.43- educated on diet/exercise, obtain labs 04/23/22: weight 208, BMI 39.3- educated extensively on lifestyle modifications, diet, exercise. Labs reviewed, which were overall without concern. Patient is interested in weight loss medication, will consider phentermine as she does qualify. EKG obtained today and was within normal limits. No concern for at this time. Patient educated excessively on side effects of phentermine. Will start phentermine 15 mg, and reassess and Four weeks, sooner as needed. Patient is a goal weight of around 175 pounds. 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 Patient was educated excessively on diet/exercise and provided handouts for a check sheet to focus on lifestyle modifications as well as high-protein, low carbohydrate, healthy fats. Patient will walk approximately 2 to 3 miles 4 to 5 times per week on her treadmill, and she will incorporate body weight strength training. Patient does have well above average muscle mass on her body, and we would like to maintain that. Patient will increase her water intake. She may consider intermittent fasting in the future. 05/28/22: weight 202.7, BMI 38.3- patient congratulated on efforts. She continues to lose weight with success. Taking phentermine 15 mg with compliance, without any side effects. Encouraged to continue with lifestyle modifications including walking regularly as well as portion control. MICC provided. Will increase phentermine to 30 mg. Patient will take 2, 15 mg tablets daily. Will follow up in one month, sooner as needed. 07/10/22: weight 198, BMI 37.4. Patient was increased to 30 mg phentermine qd last visit and has had associated side effects since increase including, sleep disturbances, constipation, lightheadedness, and lack of energy. These symptoms have led to her falling behind on previously discussed lifestyle changes from 05/28/22. She stated her most concerning symptoms are lack of sleep and increase in stress. She appears in NAD, and physical exam was unremarkable. She was instructed to D/C the dose of 30 mg phentermine and decrease back down to 15 mg phentermine qd. Lifestyle changes from previous visit were discussed, and goal for next visit is to be at those goals. Patient was educated on return precautions if she had palpitations or chest pains, or if her symptoms worsen. If Patient expensing plateau, consider Wegovy as patient will have three consecutive months of weight loss by next visit. 05/18/2023: Weight 209.2, BMI 39.52. Patient welcomed back to the practice. Has not been seen since July 2022. Is ready to get back on track. Was taking phentermine with compliance, no side effects but stopped following up with practice because she was not mentally ready. States that she now feels very motivated, anxiety under control with Celexa, and is ready to get back on the medication in conjunction with lifestyle. Discussed extensively lifestyle modification including high-protein foods, low carbohydrate snacks, healthy fats, sleep hygiene, stress reduction. Discussed medication options. Is aware of health insurance coverage/national shortages of medications. Will start semaglutide 0.25 mg with a goal to taper up to a dose is available with health [facility]. Patient in the meantime will call [facility] to see if they cover Wegovy. Educated on proper use, side effects. 06/23/2023: Weight 206.4, BMI 38.99. Patient congratulated on effort, losing slow, steady weight. Body composition reviewed, patient did gain some fat, decreased the muscle. Educated on the importance of body composition, resistance training. Increase to semaglutide 0.5, has been having some nausea, but tolerable with lifestyle. Implementing more walking now that the weather is nicer. Interested in a submitting for Wegovy 1 mg. She is aware prior authorization process, national shortage. 12/15/2023: Weight 203, BMI 38.41. Patient reestablishing, last seen in May for which she was taking Wegovy 1 mg but she stopped taking medication because of severe acid reflux, and abdominal pain. She is interested in switching over to Zepbound. Did discuss proper use, side effects and long-term risks. She is hoping that she has less side effects on this medication. Will start with tirzepatide 2.5 mg in office in the meantime compounded.Follow-up in 4 to 6 weeks. 01/19/2024: Weight 196, BMI 37.07. Patient congratulated on effort, continuing to lose slow, steady weight. Continue tirzepatide 2.5 mg, doing more consistent Pilates and walking. Trying to submit Zepbound through [facility], [place] this patient has tried semaglutide, did not tolerate well. 05/04/2024: Weight 191, BMI 36. Patient congratulated on effort. Losing fat mass, 9 pounds since November, and increased to half a pound of muscle. She is very pleased with her progress overall. Increase Zepbound to 5 mg, follow-up in 6 weeks. Patient is feeling much better on Zepbound than she did Wegovy. # Onychomycosis: On terbinafine, controlled # Anxiety: Taking Wellbutrin 100 mg and Lamictal 25 mg, feeling well.Some challenges over the winter with anxiety/depression control but is starting to feel better. Following with psychiatry. Time spent with patient 30 minutes or greater than 50% of patient occasion and care coronation Follow-up in 4-6 weeks, sooner as needed. All quetsions answered to patients satisfaction. Patient verbalized understanding of diagnosis and treatments explained. To call sooner prior to next visit it any questions/concerns arise. Case discussed with collaborating physician Aliza Garrett who reviewed the assessment and plan. Chart, medications, labs, vital signs reviewed. Dictation was accomplished with the use of [employer] voice recognition software, prone to medical misidentifications and grammatical errors. This is unintentional and the practitioner does try to identify and correct these, but some could still be present. Please do not hesitate to contact practitioner for clarification. Plan: * Treatment: * Procedure Codes:??33494 P/M GRIND OPERATOR, INDIV 15 MIN * Images: Billing Information: * Visit Code:?? 52554 Office Visit, Est Pt., Level 3. Modifiers: 25, SA * Procedure Codes:?? 18081 P/M GRIND OPERATOR, INDIV 15 MIN. * Sign off status: Completed true * Provider:??JORGE ALBERTO NGUYEN PA-C Date:??07/2024 History and Physical Notes * HPI (History of Present Illness) Category Sub-Category Detail Notes Category Not es Constitutional Shandra is a pleasant 38-year-old female who presents the office for a weight management follow-up. Patient's weight last visit was 196 pounds, today 191 pounds. Taking Zepbound 2.5 mg, interested in increasing to 5 mg. Feeling much better than she did on the Wegovy. Less constipation. Feels like she is at a pleatau and more hungry and wants to increase dose. Off for 1 week and due for injection. Grandmother is sick, so she is taking more time for her. Has seasonal effective disorder. Taking bupropion and Lamictal and feeling better. Exercise is limited right now due to depression and anxiety but getting back on track. Goals 3 times weekly outside or at the [facility]. Wants try piliates. Physical Examination Category Sub-Category Detail Notes Section Note s General: Age appropriate female, well appearing, no acute distress, speaking in full sentences without respiratory compromise. Well groomed, well developed. Skin: Warm, dry and intact. HEENT: Normocephalic/atraumatic. EOMs intact and pupils are PEARRLA. Normal dentition, no phanrgyeal erythema or tonsillar exudate, tongue and uvula are midline. Neck/Thyroid: Supple. Full ROM. No lymphadenopathy. Lung: Clear to auscultation bilaterally, no wheezes, rales or rhonchi. No barrel chest. Equal chest rise and fall bilaterally. Cardiac: S1 and S2 appreciated. No murmurs/rubs or gallops. Neuro: CN II-XI grossly intact. Steady gait with ambulation observed. Psych: Stable mood and affect
--- OUTSIDE RECORDS SUMMARY | 2024-07-04 15:40 | XMS_ITS | Patient Health Record ---
Author Organization [facility] Address [address] [place] [address] Care Team Providers Care Integration Solution Architect Name Role Phone JORGE ALBERTO PRIDE Unavailable [phone] PABLITO GARRETT Unavailable [phone] ALLERGIES No Known Allergies REASON FOR REFERRAL No Information MEDICATIONS Medication SIG (Take, Route, Frequency, Duration) Notes Start Date End Date Status Vitamin K2-Vitamin D3 Active Cranberry Active Zepbound 5 MG/0.5ML 5 mg Subcutaneous we ekly for 30 days Active Zepbound 5 MG/0.5ML INJECT 5 MG SUBCUTAN EOUSLY WEEKLY for 28 Active lamoTRIgine 25 MG Oral for 30 Days Active buPROPion HCl ER (SR) 100 MG 1 tablet in the morning Orally Once a day for 90 days Active SOCIAL HISTORY Tobacco Use: Social History Observation Description Date Details (start date - stop date) Never Smoker NA - NA Sex Assigned At : Social History Observation Description Sex Assigned At Unknown Tobacco Use/Smoking Question Answer Notes Are you a nonsmoker Section Notes: alcohol: wine 1x/week tob: denies marijuana: once every few months alcohol: wine 1x/week tob: denies marijuana: once every few months alcohol: wine 1x/week tob: denies marijuana: once every few months alcohol: wine 1x/week tob: denies marijuana: once every few months alcohol: wine 1x/week tob: denies marijuana: once every few months alcohol: wine 1x/week tob: denies marijuana: once every few months alcohol: wine 1x/week tob: denies marijuana: once every few months alcohol: wine 1x/week tob: denies marijuana: once every few months alcohol: wine 1x/week tob: denies marijuana: once every few months alcohol: wine 1x/week tob: denies marijuana: once every few months alcohol: wine 1x/week tob: denies marijuana: once every few months PROBLEMS Problem Type ICD Code Onset Dates Problem Status W/U Status Risk SNOMED Code Notes Problem Other obesity (E66.8) Active confirmed 963922237 Problem Anxiety (F41.9) Active confirmed 881728 02 Problem Obesity (BMI 30-39.9) (E66.9) Active confirmed 940529187 Problem BMI 37.0-37.9, adult (Z68.37) Active confirmed 542009679 Problem BMI 35.0-35.9,adult (Z68.35) Active confirmed Obese class II (424862768750037) Problem BMI 39.0-39.9,adult (Z68.39) Active confirmed 011691155 Problem BMI 36.0-36.9,adult (Z68.36) Active confirmed 085844773 Problem BMI 38.0-38.9,adult (Z68.38) Active confirmed 176870186 Problem BMI 34.0-34.9,adult (Z68.34) Active confirmed 237048890 Problem Screening for cardiovascular condition (Z13.6) Active confirmed Screening for cardiovascular system disease (889527714) Problem Migraine headache (G43.909) Active confirmed Migraine varian t with headache (disorder) (557675913) VITAL SIGNS Heart Rate 98 /min 06/29/2024 Blood pressure diastolic 78 mm Hg 06/29/2024 Oximetry 98 % 06/29/2024 Height 61 in 06/29/2024 Blood pressure systolic 120 mm Hg 06/29/2024 Weight 181 lbs 06/29/2024 BMI 34.2 kg/m2 06/29/2024 Encounters Encounter Location Date Provider Diagnosis [facility] [address] [place] [address] 07/05/2023 PABLITO PUGH [facility] [address] [place] [address] 07/12/2023 PABLITO PUGH [facility] [address] [place] [address] 07/13/2023 PABLITO PUGH [facility] [address] [place] [address] 07/19/2023 PABLITO GARRETT [facility] [address] [place] [address] 07/27/[address] [facility] [address] [place] [address] 08/02/[address] [facility] [address] [place] [address] 08/09/[address] [facility] [address] [place] [address] 08/11/[address] [facility] [address] [place] [address] 09/13/[address] [facility] [address] [place] [address] 12/22/[address] [facility] [address] [place] [address] 12/29/[address] [facility] [address] [place] [address] 01/05/[address] [facility] [address] [place] [address] 01/12/[address] [facility] [address] [place] [address] 01/26/[address] [facility] [address] [place] [address] 02/02/[address] [facility] [address] [place] [address] 02/09/[address] [facility] [address] [place] [address] 02/16/[address] [facility] [address] [place] [address] 03/02/[address] [facility] [address] [place] [address] 03/28/[address] [facility] [address] [place] [address] 12/15[facility] BMI 38.0-38.9,adult Z68.38 ; Obesity (BMI 30-39.9) E66.[address] [facility] [address] [place] [address] 01/19/2024 JORGE ALBERTO PRIDE Obesity (BMI 30-39.9 ) E66.9 ; BMI 37.0-37.9, adult Z68.37 and Anxiety F41.9 [facility] [address] [place] [address] 05/04/2024 JORGE ALBERTO PRIDE Obesity (BMI 30-39.9 ) E66.9 ; BMI 36.0-36.9,adult Z68.36 and Anxiety F41.9 [facility] [address] [place] [address] 06/29/2024 JORGE ALBERTOChristine PRIDE Obesity (BMI 30-39.9 ) E66.9 ; BMI 34.0-34.9,adult Z68.34 ; Anxiety F41.9 and Nutritional counseling Z71.[address] [facility] [address] [facility] [address] [place] [address] 07/16/2023 JORGE ALBERTO PRIDE Other obesity E66.[address] [facility] [address] [facility] [address] [place] [address] 08/10/2023 JORGE ALBERTO YINNER Other obesity E66.8 [facility] [address] [place] [address] 01/05/2024 JORGE ALBERTO PRIDE [address] [facility] [address] [place] [address] 01/19/2024 JORGE ALBERTO PRIDE [facility] [address] [place] [address] 02/22/2024 JORGE ALBERTO YINNER ASSESSMENTS Encounter Date Diagnosis Assessment Notes Treatment Notes Treatment Clinical Notes Section Notes 07/16/2023 Other obesity (ICD-10 - E66.8) 08/10/2023 Other obesity (ICD-10 - E66.8) 12/15/2023 Obesity (BMI 30-39.9) (ICD-10 - E66.9) Shandra Is a 32-year-old female who presents officer weight management f/u. [...] up to a dose is available with [employer]. Patient in the meantime will call [employer] to see if they cover Wegovy. Educated [...] meantime compounded.Follow-up in 4 to 6 weeks. After consultation and careful review of medical history, this patient would benefit from Zepbound based off of the following criteria met: Patient is over the age of 18, has a BMI of 38. Patient has trialed other methods of weight loss including improving diet, exercise without success over 6 months This medication is prescribed by or in consultation with a board certified obesity and weight management physician (Dr. Pablito Garrett or Dr. Chadd Garrett). # Onychomycosis: On terbinafine, controlled # Anxiety: Controlled with Celexa 10 mg, Added Wellbutrin 100 mg. Time spent with patient 30 minutes or greater than 50% of patient occasion and care coronation Follow-up in 4 weeks, sooner as needed. All quetsions answered to patients satisfaction. Patient verbalized understanding of diagnosis and treatments explained. To call sooner prior to next visit it any questions/concerns arise. Case discussed with collaborating physician Aliza Garrett who reviewed the assessment and plan. Chart, medications, labs, vital signs reviewed. Dictation was accomplished with the use of [employer] voice recognition software, prone to medical misidentifications and grammatical errors. This is unintentional and the practitioner does try to identify and correct these, but some could still be present. Please do not hesitate to contact practitioner for clarification. 12/15/2023 BMI 38.0-38.9,adul t (ICD-10 - Z68.38) Shandra Is a 32-year-old female who presents officer weight management f/u. [...] walking regularly as well as portion control. MIC provided. Will increase phentermine to 30 mg. [...] up to a dose is available with [employer] [facility]. Patient in the meantime will call [employer] to see if they cover Wegovy. Educated [...] meantime compounded.Follow-up in 4 to 6 weeks. After consultation and careful review of medical history, this patient would benefit from Zepbound based off of the following criteria met: Patient is over the age of 18, has a BMI of 38. Patient has trialed other methods of weight loss including improving diet, exercise without success over 6 months This medication is prescribed by or in consultation with a board certified obesity and weight management physician (Dr. Pablito Garrett or Dr. Chadd Garrett). # Onychomycosis: On terbinafine, controlled # Anxiety: Controlled with Celexa 10 mg, Added Wellbutrin 100 mg. Time spent with patient 30 minutes or greater than 50% of patient occasion and care coronation Follow-up in 4 weeks, sooner as needed. All quetsions answered to patients satisfaction. Patient verbalized understanding of diagnosis and treatments explained. To call sooner prior to next visit it any questions/concerns arise. Case discussed with collaborating physician Aliza Garrett who reviewed the assessment and plan. Chart, medications, labs, vital signs reviewed. Dictation was accomplished with the use of [employer] voice recognition software, prone to medical misidentifications and grammatical errors. This is unintentional and the practitioner does try to identify and correct these, but some could still be present. Please do not hesitate to contact practitioner for clarification. 01/19/2024 Obesity (BMI 30-39.9) (ICD-10 - E66.9) Shandra Is a 32-year-old female who presents officer weight management f/u. [...] up to a dose is available with [employer] [facility]. Patient in the meantime will call [employer] to see if they cover Wegovy. Educated [...] and walking. Trying to submit Zepbound through [employer] this patient has tried semaglutide, did not tolerate well. After consultation and careful review of medical history, this patient would benefit from Zepbound based off of the following criteria met: Patient is over the age of 18, has a BMI of 37. Patient has trialed other methods of weight loss including improving diet, exercise without success over 6 months This medication is prescribed by or in consultation with a board certified obesity and weight management physician (Dr. Pablito Garrett or Dr. Chadd Garrett). # Onychomycosis: On terbinafine, controlled # Anxiety: Controlled with Celexa 10 mg, Added Wellbutrin 100 mg. Time spent with patient 30 minutes or [...] Dictation was accomplished with the use of [employer] voice recognition software, prone to medical misidentifications and grammatical errors. This is unintentional and the practitioner does try to identify and correct these, but some could still be present. Please do not hesitate to contact practitioner for clarification. 01/19/2024 BMI 37.0-37.9, adult (ICD-10 - Z68.37) Shandra Is a 32-year-old female who presents officer weight management f/u. [...] up to a dose is available with [employer] [facility]. Patient in the meantime will call [employer] to see if they cover Wegovy. Educated [...] and walking. Trying to submit Zepbound through [employer] this patient has tried semaglutide, did not tolerate well. After consultation and careful review of medical history, this patient would benefit from Zepbound based off of the following criteria met: Patient is over the age of 18, has a BMI of 37. Patient has trialed other methods of weight loss including improving diet, exercise without success over 6 months This medication is prescribed by or in consultation with a board certified obesity and weight management physician (Dr. Pablito Garrett or Dr. Chadd Garrett). # Onychomycosis: On terbinafine, controlled # Anxiety: Controlled with Celexa 10 mg, Added Wellbutrin 100 mg. Time spent with patient 30 minutes or [...] Dictation was accomplished with the use of [employer] voice recognition software, prone to medical misidentifications and grammatical errors. This is unintentional and the practitioner does try to identify and correct these, but some could still be present. Please do not hesitate to contact practitioner for clarification. 05/04/2024 Obesity (BMI 30-39.9) (ICD-10 - E66.9) [...] up to a dose is available with [employer] [facility]. Patient in the meantime will call [employer] to see if they cover Wegovy. Educated [...] and walking. Trying to submit Zepbound through [employer] this patient has tried semaglutide, did not [...] Dictation was accomplished with the use of [employer] voice recognition software, prone to medical misidentifications and grammatical errors. This is unintentional and the practitioner does try to identify and correct these, but some could still be present. Please do not hesitate to contact practitioner for clarification. 05/04/2024 BMI 36.0-36.9,adul t (ICD-10 - Z68.36) Shandra Is a 38-year-old [...] up to a dose is available with [employer]. Patient in the meantime will call [facility] to see if they cover Wegovy. Educated [...] and walking. Trying to submit Zepbound through [employer] this patient has tried semaglutide, did not [...] Dictation was accomplished with the use of [employer] voice recognition software, prone to medical misidentifications and grammatical errors. This is unintentional and the practitioner does try to identify and correct these, but some could still be present. Please do not hesitate to contact practitioner for clarification. 06/29/2024 Obesity (BMI 30-39.9) (ICD-10 - E66.9) Shandra [...] up to a dose is available with [employer]. Patient in the meantime will call [facility] to see if they cover Wegovy. Educated [...] and walking. Trying to submit Zepbound through [employer] this patient has tried semaglutide, did not tolerate well. 05/04/2024: Weight 191, BMI 36. Patient congratulated on effort. Losing fat mass, 9 pounds since November, and increased to half a pound of muscle. She is very pleased with her progress overall. Increase Zepbound to 5 mg, follow-up in 6 weeks. Patient is feeling much better on Zepbound than she did Wegovy. 06/29/24: Weight 181, BMI 34. Patient pleased with progress, congratulated on effort. Did lose 8 pounds of fat, very pleased with progress overall. Will continue with Zepbound 5 mg, and follow-up in 4 to 6 weeks. Continue to encourage lifestyle. She is noticing more confidence. # Onychomycosis: On terbinafine, controlled # Anxiety: [...] Dictation was accomplished with the use of [employer] voice recognition software, prone to medical misidentifications and grammatical errors. This is unintentional and the practitioner does try to identify and correct these, but some could still be present. Please do not hesitate to contact practitioner for clarification. 06/29/2024 BMI 34.0-34.9,adul t (ICD-10 - Z68.34) Shandra Is a 38-year-old female who presents [...] up to a dose is available with [employer]. Patient in the meantime will call [facility] to see if they cover Wegovy. Educated [...] and walking. Trying to submit Zepbound through [employer] this patient has tried semaglutide, did not tolerate well. 05/04/2024: Weight 191, BMI 36. Patient congratulated on effort. Losing fat mass, 9 pounds since November, and increased to half a pound of muscle. She is very pleased with her progress overall. Increase Zepbound to 5 mg, follow-up in 6 weeks. Patient is feeling much better on Zepbound than she did Wegovy. 06/29/24: Weight 181, BMI 34. Patient pleased with progress, congratulated on effort. Did lose 8 pounds of fat, very pleased with progress overall. Will continue with Zepbound 5 mg, and follow-up in 4 to 6 weeks. Continue to encourage lifestyle. She is noticing more confidence. # Onychomycosis: On terbinafine, controlled # Anxiety: [...] Dictation was accomplished with the use of [employer] voice recognition software, prone to medical misidentifications and grammatical errors. This is unintentional and the practitioner does try to identify and correct these, but some could still be present. Please do not hesitate to contact practitioner for clarification. 06/29/2024 Anxiety (ICD-10 - F41.9) Shandra Is a [...] up to a dose is available with [employer]. Patient in the meantime will call [employer] to see if they cover Wegovy. Educated [...] and walking. Trying to submit Zepbound through [employer] this patient has tried semaglutide, did not tolerate well. 05/04/2024: Weight 191, BMI 36. Patient congratulated on effort. Losing fat mass, 9 pounds since November, and increased to half a pound of muscle. She is very pleased with her progress overall. Increase Zepbound to 5 mg, follow-up in 6 weeks. Patient is feeling much better on Zepbound than she did Wegovy. 06/29/24: Weight 181, BMI 34. Patient pleased with progress, congratulated on effort. Did lose 8 pounds of fat, very pleased with progress overall. Will continue with Zepbound 5 mg, and follow-up in 4 to 6 weeks. Continue to encourage lifestyle. She is noticing more confidence. # Onychomycosis: On terbinafine, controlled # Anxiety: [...] Dictation was accomplished with the use of [employer] voice recognition software, prone to medical misidentifications [...] up to a dose is available with [employer] [facility]. Patient in the meantime will call [facility] to see if they cover Wegovy. Educated [...] and walking. Trying to submit Zepbound through [employer] [facility] this patient has tried semaglutide, did not [...] Dictation was accomplished with the use of [employer] voice recognition software, prone to medical misidentifications and grammatical errors. This is unintentional and the practitioner does try to identify and correct these, but some could still be present. Please do not hesitate to contact practitioner for clarification. 01/19/2024 Anxiety (ICD-10 - F41.9) Shandra Is a 32-year-old female who presents officer weight management f/u. [...] up to a dose is available with [employer] [facility]. Patient in the meantime will call [employer] to see if they cover Wegovy. Educated [...] and walking. Trying to submit Zepbound through [employer] [facility] this patient has tried semaglutide, did not tolerate well. After consultation and careful review of medical history, this patient would benefit from Zepbound based off of the following criteria met: Patient is over the age of 18, has a BMI of 37. Patient has trialed other methods of weight loss including improving diet, exercise without success over 6 months This medication is prescribed by or in consultation with a board certified obesity and weight management physician (Dr. Pablito Garrett or Dr. Chadd Garrett). # Onychomycosis: On terbinafine, controlled # Anxiety: Controlled with Celexa 10 mg, Added Wellbutrin 100 mg. Time spent with patient 30 minutes or [...] Dictation was accomplished with the use of [employer] voice recognition software, prone to medical misidentifications and grammatical errors. This is unintentional and the practitioner does try to identify and correct these, but some could still be present. Please do not hesitate to contact practitioner for clarification. 12/15/2023 Anxiety (ICD-10 - F41.9) Shadnra Is a 32-year-old female who presents officer weight management f/u. [...] up to a dose is available with [employer] [facility]. Patient in the meantime will call [employer] to see if they cover Wegovy. Educated [...] meantime compounded.Follow-up in 4 to 6 weeks. After consultation and careful review of medical history, this patient would benefit from Zepbound based off of the following criteria met: Patient is over the age of 20, has a BMI of 38. Patient has trialed other methods of weight loss including improving diet, exercise without success over 6 months This medication is prescribed by or in consultation with a board certified obesity and weight management physician (Dr. Pablito Garrett or Dr. Chadd Garrett). # Onychomycosis: On terbinafine, controlled # Anxiety: Controlled with Celexa 10 mg, Added Wellbutrin 100 mg. Time spent with patient 30 minutes or greater than 50% of patient occasion and care coronation Follow-up in 4 weeks, sooner as needed. All quetsions answered to patients satisfaction. Patient verbalized understanding of diagnosis and treatments explained. To call sooner prior to next visit it any questions/concerns arise. Case discussed with collaborating physician Aliza Garrett who reviewed the assessment and plan. Chart, medications, labs, vital signs reviewed. Dictation was accomplished with the use of [employer] voice recognition software, prone to medical misidentifications and grammatical errors. This is unintentional and the practitioner does try to identify and correct these, but some could still be present. Please do not hesitate to contact practitioner for clarification. 06/29/2024 Nutritional counseling (ICD-10 - Z71.3) Shandra Is a 38-year-old female who presents [...] up to a dose is available with [employer] [facility]. Patient in the meantime will call [employer] to see if they cover Wegovy. Educated [...] and walking. Trying to submit Zepbound through [employer] [facility] this patient has tried semaglutide, did not tolerate well. 05/04/2024: Weight 191, BMI 36. Patient congratulated on effort. Losing fat mass, 9 pounds since November, and increased to half a pound of muscle. She is very pleased with her progress overall. Increase Zepbound to 5 mg, follow-up in 6 weeks. Patient is feeling much better on Zepbound than she did Wegovy. 06/29/24: Weight 181, BMI 34. Patient pleased with progress, congratulated on effort. Did lose 8 pounds of fat, very pleased with progress overall. Will continue with Zepbound 5 mg, and follow-up in 4 to 6 weeks. Continue to encourage lifestyle. She is noticing more confidence. # Onychomycosis: On terbinafine, controlled # Anxiety: [...] Dictation was accomplished with the use of [employer] voice recognition software, prone to medical misidentifications and grammatical errors. This is unintentional and the practitioner does try to identify and correct these, but some could still be present. Please do not hesitate to contact practitioner for clarification. PLAN OF TREATMENT Pending Test Test Name Order Date EKG 04/23/2022 Next Appt Details Provider Name:JORGE ALBERTO PRIDE, 08/11/2024 09:45:00 AM, [address], [place], [address], Insurance Providers Payer Name Payer Address Payer Phone Subscriber Number Group Number Insured Name Patient Relationship to Insured Coverage Start Date Coverage End Date [facility] [address] [place] [address] [id number] Shandra Bui Self - patient is the insured MEDICATIONS ADMINISTERED Medication Instructions Date of Administration Dosage Notes MICC B12 INJECTION 05/28/2022 lot # [id number] MICC B12 INJECTION 07/10/2022 Semaglutide 05/18/2023 .25 mg Semaglutide 05/24/2023 0.25 Semaglutide 06/07/2023 0.25 mg lot# [id number] 0.25mg Semaglutide 06/15/2023 0.25 Semaglutide 06/21/2023 0.5 Semaglutide 06/28/2023 0.5 Semaglutide 07/05/2023 0.5 Semaglutide 07/13/2023 0.5 Tirzepatide 12/15/2023 2.5 mg Tirzepatide 12/22/2023 2.5 mg Tirzepatide 12/29/2023 2.5 mg Tirzepatide 01/05/2024 2.5 mg Tirzepatide 01/12/2024 2.5 mg Tirzepatide 01/19/2024 2.5 mg MEDICAL (GENERAL) HISTORY Medical History History ICD Code Weight gain R63.5 Migraine headache G43.909 Anxiety F41.9 Surgical History Surgery Date(Month/Year) 09/09/2019
--- OUTSIDE RECORDS SUMMARY | 2024-07-04 15:40 | XMS_ITS | Clinical Summary ---
Author Organization Patient Business Ser [facility] Address [address] [place] [address] Care Team Providers Care Gold Letterer Name Role Phone Claudia Lew DO Primary Care Provider [phone] Surgical History Surgery Date Site/Laterality Comments OTHER SURGICAL HISTORY PROCEDURE: DENIES PREVIOUS SURGERY COLONOSCOPY 02/14/2015 PROCEDURE: HISTORICAL COLONOSCOPY; COMMENT: Simran, normal Medical History Medical History Date Comments Depression with anxiety DX:Depre ssion with anxiety; COMMENT: previously on fluoxetine Insomnia DX:Insomnia; COM MENT: previous trazodone Herpes simplex virus (HSV) infection 07/20/2018 DX:Herpes simplex virus (HSV) infection; COMMENT: 12/20/2014 Psoriasis 04/20/2018 DX:Psoriasis Acne 05/12/2011 DX:Acne Cervical radiculopathy 07/20/2018 DX:Cervic al radiculopathy; COMMENT: Left C2-3. Family History Medical History Relation Name Comments Hypertension Brother Diabetes Maternal Grandfather Lung Ca ncer Heart attack Maternal Grandmother Thyroid Disorder Hyperlipidemia Mother Arthritis, Co fausto Polyps Diabetes Mother's side Relation Name Status Comments Brother Alive Father Maternal Grandfather Maternal Grandmother Alive Mother Alive Mother's side Social History Tobacco Use Types Packs/Day Years Used Date Smoking Tobacco: Never Smokeless Tobacco: Never Alcohol Use Standard Drinks/Week Comments Yes 0 (1 standard drink = 0.6 oz pur e alcohol) Comments Unknown Sex and Gender Information Value Date Recorded Sex Assigned at Not on file Legal Sex Female 8:36 PM EDT Gender Identity Not on file Sexual Orientation Not on file Obstetrics History Last Filed Vital Signs Vital Sign Reading Time Taken Comments Blood Pressure 100/60 01/15/2023 10:04 AM EST Pulse 84 01/15/2023 10:04 AM EST Temperature - - Respiratory Rate - - Oxygen Saturation - - Inhaled Oxygen Concentration - - Weight 91.2 kg (201 lb) 03/31/2023 3:56 PM EST Height 156.2 cm (5' 1.5 ) 03/31/2023 3:56 PM EST Body Mass Index 37.36 03/31/2023 3:56 PM EST Plan of Treatment Upcoming Encounters Date Type Department Care Team (Late st Contact Info) Description 08/16/2024 11:15 AM EDT [facility] [address] [place] [address] Claudia Lew DO [address] [place] [address] Health Maintenance Due Date Last Done Comments Hepatitis B Vaccines (1 of 3 - 19+ 3-dose series) 10/21/2006 Cervical Cancer Screening: P ap Smear 10/21/2008 Colorectal Cancer Screening: Colonoscopy 11/09/2019 Depression Screening 11/09/2019 HIV Screening 11/09/2019 Hepatitis C Screening 11/09/2019 Social Influencers of Health Screening 11/09/2019 DTaP,Tdap,and Td Vaccines (2 - Td or Tdap) 12/15/2020 12/15/2010 COVID-19 Vaccine ( - 2023-2 5 season) 2023 Influenza Vaccine (Season Ended) 2024 HIB Vaccines Aged Out No longer eligi ble based on patient's age to complete this topic HPV Vaccines Aged Out No longer eligi ble based on patient's age to complete this topic Hepatitis A Vaccines Aged Out No long er eligible based on patient's age to complete this topic IPV Vaccines Aged Out No longer eligi ble based on patient's age to complete this topic MMR Vaccines Aged Out No longer eligi ble based on patient's age to complete this topic Meningococcal ACWY Vaccine Aged Out N o longer eligible based on patient's age to complete this topic Meningococcal B Vaccine Aged Out No l onger eligible based on patient's age to complete this topic Pneumococcal Vaccine: Pediat rics (0 to 5 Years) and At-Risk Patients (6 to 64 Years) Aged Out No longer eligi ble based on patient's age to complete this topic RSV Immunization Patients Un radha 20 months Aged Out No longer eligible b ased on patient's age to complete this topic Varicella Vaccines Aged Out No longer eligible based on patient's age to complete this topic Insurance [facility] [address] [place] [address] Care Teams Gold Letterer Relationship Specialty Start Date End Date Claudia Lew DO [address] [place] [address] PCP - General 11/30/22
--- OUTSIDE RECORDS SUMMARY | 2024-07-04 15:40 | XMS_ITS ---
Author Organization [facility] Address [address] [place] [address] Care Team Providers Care Chili Powder Mixer Name Role Phone JORGE ALBERTO PRIDE Unavailable [phone] ALLERGIES No Known Allergies REASON FOR VISIT Patient presents for weight management follow up. Previous weight was 191lbs, current weight is standing at 182.3lbs. The patient is interested in increasing from Zepbound 5mg to 7.5mg. No additionalconcerns that are needed to be addressed MEDICATIONS Medication SIG (Take, Route, Frequency, Duration) Notes Start Date End Date Status Vitamin K2-Vitamin D3 Active Cranberry Active Zepbound 5 MG/0.5ML 5 mg Subcutaneous we ekly for 30 days Active Zepbound 5 MG/0.5ML INJECT 5 MG SUBCUTAN EOUSLY WEEKLY for 28 Active buPROPion HCl ER (SR) 100 MG 1 tablet in the morning Orally Once a day for 90 days Active lamoTRIgine 25 MG Oral for 30 Days Active SOCIAL HISTORY Tobacco Use: Social History [...] W/U Status Risk SNOMED Code Notes Problem BMI 34.0-34.9,ad ult (Z68.34) Active confirmed [id number] VITAL SIGNS Blood pressure systolic 120 mm Hg 06/30/19 25 Blood pressure diastolic 78 mm Hg 025 Heart Rate 98 /min 06/29/2024 Height 61 in 06/29/2024 Weight 181 lbs 06/29/2024 BMI 34.2 kg/m2 06/29/2024 Oximetry 98 % 06/29/2024 Encounters Encounter Location Date Provider Diagnosis [facility] [address] [place] [address] 06/29/2024 JORGE ALBERTO PRIDE Obesity (BMI 30-39.9 ) E66.9 ; BMI 34.0-34.9,adult Z68.34 ; Anxiety F41.9 and Nutritional counseling Z71.3 ASSESSMENTS Encounter Date Diagnosis Assessment Notes Treatment Notes Treatment Clinical Notes Section Notes 06/29/2024 Obesity (BMI 30-39.9) (ICD-10 - E66.9) [...] to a dose is available with [facility] [place]. Patient in the meantime will call [place] to see if they cover We[place]. Educated [...] and walking. Trying to submit Zepbound through [employer] this patient has tried semaglutide, did not [...] Dictation was accomplished with the use of [employer] voice recognition software, prone to medical misidentifications [...] up to a dose is available with [facility] [place]. Patient in the meantime will call [place] to see if they cover Wegov[place]. Educated [...] and walking. Trying to submit Zepbound through [employer] this patient has tried semaglutide, did not [...] Dictation was accomplished with the use of [employer] voice recognition software, prone to medical misidentifications [...] up to a dose is available with [employer]. Patient in the meantime will call [place] to see if they cover Wegov[place]. Educated [...] and walking. Trying to submit Zepbound through [facility] [place] this patient has tried semaglutide, did not [...] Dictation was accomplished with the use of [employer] voice recognition software, prone to medical misidentifications [...] up to a dose is available with [employer]. Patient in the meantime will call [place] to see if they cover We[place]. Educated [...] and walking. Trying to submit Zepbound through [facility] [place] this patient has tried semaglutide, did not [...] Dictation was accomplished with the use of [employer] voice recognition software, prone to medical misidentifications and grammatical errors. This is unintentional and the practitioner does try to identify and correct these, but some could still be present. Please do not hesitate to contact practitioner for clarification. PLAN OF TREATMENT Medication Medication Name Sig Start Date Stop Date Notes Zepbound 5 MG/0.5ML 5 mg Subcutaneous weekly for 30 days Next Appt Details Provider Name:JORGE ALBERTO PRIDE, 08/11/2024 09:45:00 AM, [address], [place], [address], Progress Notes * Anyi GALINDO:[birth year] (38 yo F)Acc No.[id number]:06/29/2024 Patient:??Jose GALINDO Provider:??JORGE ALBERTO NGUYEN PA-C :1985?Age:38 Y?Sex:Nicolle male Date:06/29/2024 Address: [address] [facility] Subjective: * Chief Complaints: * ?1. Patient presents fo r weight management follow up. Previous weight was 191lbs, current weight is standing at 182.3lbs. The patient is interested in increasing from Zepbound 5mg to 7.5mg. No additional concerns that are needed to be addressed. * HPI: ?Constitutional:? Shandra is a pleasant 38-year-old female who presents to the office for weight management follow-up. Patient currently taking Zepbound 5 mg with compliance, without any side effects. She was last seen on 05/04/2024. Weight at that time 191 with a BMI of 36. Feeling well on the 5 mg dose and some side effect with appetite suppression. Sometimes she states she cannot eat meals. When she is hungry she can only eat small amounts. Today she ate bread and cheese and sausage. Limiting sugars. Exercise is better as well but still could see improvement. Mentally feeling mroe motivated. Goals for 2 days weekly at the [facility]. Goal is to target fat loss on her extremities. Cardio and resistance training at the gym. Her cloes are fitting better, used to wear a size 14 and now wearing size 10. Now wearing mediums as well instead of a large and feelins more confidence. * ROS:?Constitutional: Patient denies any excessive fatigue [...] ???marijuana: once every few months. * Medications:??Taking Cranber ry , Taking Vitamin K2-Vitamin D3 , Taking buPROPion HCl ER (SR) 100 MG Tablet Extended Release 12 Hour 1 tablet in the morning Orally Once a day , Taking lamoTRIgine 25 MG Tablet Oral , Taking Zepbound 5 MG/0.5ML Solution Auto-injector INJECT 5 MG SUBCUTANEOUSLY WEEKLY , Medication List reviewed and reconciled with the patient * Allergies:??N.K.D.A. Objective: * Vitals:??HR:98/min, BP:120/7 8mm Hg, Wt:181lbs, BMI:34.2Index, Ht: 61 in, Oxygen sat %:98%. * Physical Examination:?General: Age appropriate female, well [...] Assessment: 1.??Obesity (BMI 30-39.9) - E66.9 (Primary)??2.??BMI 34.0-34.9,adult - Z68.34??3.??Anxiety - F41.9??4.??Nutritional counseling - Z71.3?? Shandra Is a 38-year-old fe male who [...] up to a dose is available with [employer]. Patient in the meantime will call [place] to see if they cover We[place]. Educated [...] and walking. Trying to submit Zepbound through [facility] [place] this patient has tried semaglutide, did not [...] Dictation was accomplished with the use of [employer] voice recognition software, prone to medical misidentifications and grammatical errors. This is unintentional and the practitioner does try to identify and correct these, but some could still be present. Please do not hesitate to contact practitioner for clarification. Plan: * Treatment: * Procedure Codes:??92467 P/M STRUCTURED CABLING TECHNICIAN, INDIV 15 MIN, Modifiers: 33 , SA * Images: Billing Information: * Visit Code:?? 21917 Office Visit, Est Pt., Level 3. Modifiers: SA * Procedure Codes:?? 54086 P/M STRUCTURED CABLING TECHNICIAN, INDIV 15 MIN. Modifiers: 33, SA * Sign off status: Completed true * Provider:??JORGE ALBERTO NGUYEN PA-C Date:??03/2024 History and Physical Notes * HPI (History of Present Illness) Category Sub-Category Detail Notes Category Not es Constitutional Shandra is a pleasant 38-year-old female who presents to the office for weight management follow-up. Patient currently taking Zepbound 5 mg with compliance, without any side effects. She was last seen on 05/04/2024. Weight at that time 191 with a BMI of 36. Feeling well on the 5 mg dose and some side effect with appetite suppression. Sometimes she states she cannot eat meals. When she is hungry she can only eat small amounts. Today she ate bread and cheese and sausage. Limiting sugars. Exercise is better as well but still could see improvement. Mentally feeling mroe motivated. Goals for 2 days weekly at the [facility]. Goal is to target fat loss on her extremities. Cardio and resistance training at the gym. Her cloes are fitting better, used to wear a size 14 and now wearing size 10. Now wearing mediums as well instead of a large and feelins more confidence. Physical Examination Category Sub-Category Detail Notes Section [...]
[2024-07-04 16:04] LABS: Appearance Urine Clear; Color Urine Yellow; Glucose Urine UA Negative (Negative); Leukocyte Esterase Urine Negative (Negative); Nitrite Urine Negative (Negative); PH 7.5 (5.0-9.0); Specific Gravity - Urine <= 1.005 (1.005-1.025); UPreg QC Valid YES; Urine Blood Negative (Negative); Urine Ketones Negative (Negative); Urine Pregnancy NEGATIVE (NEGATIVE); Urine Protein Negative (Neg-Trace)
[2024-07-04 16:08] VITALS: BP 111/50; PULSE 74; RESP 18; TEMP 36.5; O2SAT 100
[2024-07-04] MEDS: Ketorolac Tromethamine 15 MG/ML VIAL IVPUSH (16:37)
[2024-07-04] MEDS: Acetaminophen 325 MG TABLET 975 MG PO (16:38)
[2024-07-04 16:57] VITALS: BP 111/50; PULSE 74; RESP 18; TEMP 36.5; O2SAT 100
[2024-07-04 17:28] LABS: Alkaline Phosphatase 83 U/L (39-117)
== END 2024-07-04 16:57 | disposition home or self-care (01) ==
PROVIDERS: Physician Assistant; Emergency Provider Emergency Medicine; PCP Internal Medicine
DX: N83.292 Other ovarian cyst, left side (principal); R10.32 Left lower quadrant pain; R10.2 Pelvic and perineal pain
CPT/HCPCS: 36415; 76830; 76856; 80053; 81003; 81025; 84702; 85025; 93975; 96374; 99283; 99284; J1885

== ENCOUNTER → 2024-07-04 13:48 | Outpatient (BNV) | payer OTHER, SELFPAY | PROVIDERS: Emergency Provider Emergency Medicine; PCP Internal Medicine; Visit Provider Radiology Diagnostic Radiology | DX: D25.9 Leiomyoma of uterus, unspecified (principal); N83.202 Unspecified ovarian cyst, left side | CPT/HCPCS: 76830; 76856 ==